=== PATIENT | female | born 1975 | race African-American/Black ===

== ENCOUNTER 2017-11-28 15:09 | Emergency (ER) | payer OTHER ==
[~2017-11-28] VITALS: Ht 165.1 cm; Wt 89.8 kg
--- NOTE | ~2017-11-28 | EKG ---
[address] [place] [place] [address] ELECTROCARDIOGRAM REPORT Name: STARR JOY Room #: [facility]#: [id number] Admission: 11/28/17 Attend Phys: Discharge: 11/28/17 Date of : 73 Report #: [id number] THIS REPORT FOR: //name// [facility] ED Test Date: 2017-11-28 Test Time: 15:47:44 Pat Name: STARR JOY Department: Room: Gender: F Cloud Systems Administrator: ZELALEM : 1975 Requested By: Cisco Casas Order Number: [id number] MD: Caden Hughes Measurements Intervals [place] Rate: 90 P: 55 CO: 151 QRS: 59 QRSD: 96 T: 36 QT: 369 QTc: 452 Interpretive Statements Sinus rhythm Probable left atrial enlargement Left ventricular hypertrophy Compared to ECG 03/30/2014 02:17:19 No significant change was found Electronically Signed On 11-28-2017 17:41:51 CDT by Caden Hughes [email or web address] <ELECTRONICALLY SIGNED> By: Caden Hughes MD, [facility] 11/28/17 1741 1547 154 Caden Hughes MD, FACC /EPI
[~2017-11-28 15:09] MED LIST: APAP500; FLEXERIL PO
[2017-11-28 16:06] LABS: ABSOLUTE NEUTROPHILS 8.8 thou/uL (1.4-8.2); BASOPHILS 0.7 % (0.0-2.0); EOSINOPHILS 1.2 % (0.0-3.0); HEMATOCRIT 44.2 % (37.0-47.0); HEMOGLOBIN 14.7 gm/dL (12.0-15.0); LYMPHOCYTES 23.7 % (24.0-44.0); MCH 25.8 pg (26.0-34.0); MCHC 33.1 g/dL (28.0-37.0); MCV 77.7 fL (80.0-100.0); MONOCYTES 6.8 % (1.0-8.0); PLATELET COUNT 293 thou/uL (150-400); POLYS 67.6 % (36.0-66.0); RBC 5.69 mil/uL (4.20-5.00); RDW 15.9 % (10.5-14.5)
[2017-11-28 16:14] LABS: ANION GAP 11 mmol/L (7-16); BUN 18 mg/dL (7-18); CHLORIDE 104 mmol/L (98-107); CO2 26 mmol/L (21-32); CREATININE 0.9 mg/dL (0.6-1.0); GLUCOSE 93 mg/dL (74-106); POTASSIUM 3.8 mmol/L (3.5-5.1); SODIUM 141 mmol/L (136-145)
[2017-11-28 16:22] LABS: TROPONIN-I < 0.04 ng/mL (<0.06)
[2017-11-28] MEDS ORDERED: NORVASC5 MG PO (16:31)
[2017-11-28 16:50] VITALS: BP 179/99
== END 2017-11-28 16:45 | disposition home or self-care (01) ==
LOC: ER 15:09
PROVIDERS: Physician Assistant
DX: I16.0 Hypertensive urgency (principal); R51 Headache; Z88.6 Allergy status to analgesic agent; Z88.0 Allergy status to penicillin

== ENCOUNTER → 2018-02-14 | Outpatient (CLI) | payer BC, OTHER ==
[~2018-02-14] MED LIST changes: +NORVASC5 MG PO
== END ==
LOC: RAD 10:33
DX: Z12.31 Encounter for screening mammogram for malignant neoplasm of breast (principal)

== ENCOUNTER → 2018-02-24 | Outpatient (CLI) | payer BC, OTHER | LOC: ULTRA 08:59 | DX: I10 Essential (primary) hypertension (principal) ==

== ENCOUNTER 2021-06-09 12:41 | Emergency (ER) | payer BC, OTHER ==
[~2021-06-09] VITALS: Ht 165.1 cm; Wt 117.9 kg
[2021-06-09 12:57] LABS: ABSOLUTE NEUTROPHILS 8.3 thou/uL (1.4-8.2); BASOPHILS 0.5 % (0.0-2.0); HEMATOCRIT 43.3 % (37.0-47.0); HEMOGLOBIN 14.4 gm/dL (12.0-15.0); LYMPHOCYTES 32.3 % (24.0-44.0); MCH 26.2 pg (26.0-34.0); MCHC 33.2 g/dL (28.0-37.0); MCV 78.8 fL (80.0-100.0); MONOCYTES 6.2 % (1.0-8.0); PLATELET COUNT 330 thou/uL (150-400); RDW 15.9 % (10.5-14.5); WBC 13.8 thou/uL (4.0-11.0)
[2021-06-09 13:07] LABS: CALCIUM 8.8 mg/dL (8.5-10.1); POTASSIUM 3.7 mmol/L (3.5-5.1)
[2021-06-09 13:13] LABS: ALBUMIN 3.3 g/dL (3.4-5.0); TOTAL BILIRUBIN 0.3 mg/dL (0.2-1.0)
[2021-06-09 14:09] LABS: AMP/METHAMP Negative (Negative); BARBITURATES Negative (Negative); BENZODIAZEPINES Negative (Negative); COCAINE Negative (Negative); METHADONE Negative (Negative); OPIATES POSITIVE (Negative); PCP Negative (Negative)
[2021-06-09] MEDS ORDERED: NAPROSYN500 MG PO (14:21)
[2021-06-09] MEDS ORDERED: APAP W/CODEINE1 TA2 PO (14:21)
[2021-06-09 14:23] VITALS: BP 134/76
--- NOTE | 2021-06-10 14:58 | EKG ---
[place] [address] [facility] [place] [address] ELECTROCARDIOGRAM REPORT Name: STARR JOY Room #: [facility]#: [id number] Admission: 06/09/21 Attend Phys: Discharge: 06/09/21 Date of : 73 Report #: [id number] [facility] ED Test Date: 2021-06-09 Test Time: 12:44:27 Pat Name: STARR JOY Department: Room: Gender: F Accounting Manager: : 1975 Requested By: Rodri Joshua Order Number: [id number] MD: Caden Hughes Measurements Intervals [place] Rate: 102 P: 66 [place]: 136 QRS: 68 QRSD: 97 T: 83 QT: 345 QTc: 450 Interpretive Statements Sinus tachycardia Borderline repolarization abnormality Compared to ECG 11/28/2017 15:47:44 No significant change was found Electronically Signed On 06-10-2021 14:58:31 CDT by Caden Hughes [email or web address] <ELECTRONICALLY SIGNED> By: Caden Hughes MD, [facility] 06/10/21 1458 1244 1244 Caden Hughes MD, FACC /EPI
== END 2021-06-09 14:42 | disposition home or self-care (01) ==
LOC: ER 12:41
PROVIDERS: Emergency Medicine
DX: N20.0 Calculus of kidney (principal); Z20.822 Contact with and (suspected) exposure to COVID-19; I10 Essential (primary) hypertension; E11.9 Type 2 diabetes mellitus without complications; Z90.49 Acquired absence of other specified parts of digestive tract; Z88.6 Allergy status to analgesic agent; Z88.0 Allergy status to penicillin